=== PATIENT | female | born 1970 | race Two or more races ===

== ENCOUNTER 2025-06-11 19:41 | Emergency (ER) | payer OTHER ==
[~2025-06-11] VITALS: Ht 154.9 cm; Wt 87.0 kg
--- NOTE | 2025-06-11 21:18 | DVH ---
INDICATION: Low back pain TECHNIQUE: 4 views of the lumbar spine were obtained. COMPARISON: None FINDINGS: There are no acute fractures or subluxations. Minimal convex left curvature of the thoracolumbar spine. Alignment otherwise maintained. 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 IMPRESSION: No acute fracture or subluxation. Mild degenerative changes.
--- NOTE | 2025-06-11 21:37 | ED.PDOC ---
History of Present Illness HPI Comments 54 y/o F presents with c/c of right, lower back pain. Patient endorses on sudden onset of 'pinching' pain, while working, earlier, today, an hour prior to arrival. She reports on pain worsening whenever standing or walking. No recent injuries stated. Denies any radiating pain, weakness, numbness, tingling, or further acute symptoms. Chief Complaint: Back Pain Time Seen by MD: 20:40 Reviewed Notes: Nurses Notes, Medications, Allergies Allergies: Coded Allergies: NO KNOWN ALLERGIES (Unverified , 06/11/25) Home Meds Active Scripts Cyclobenzaprine Hcl (CYCLOBENZAPRINE HCL) 7.5 Mg Tab, 7.5 MG PO Q6HP PRN, #30 TAB Prov:CONNER LEMOS MD 06/11/25 Gabapentin (Once-Daily) (Gabapentin) 300 Mg Tab, 300 MG PO Q6HP PRN, #60 TAB Prov:CONNER LEMOS MD 06/11/25 Information Source: Patient Mode of Arrival: Ambulatory Severity: Moderate Timing: Hours Duration: Since onset Prehospital treatment: None Past Medical History PAST MEDICAL HISTORY: Denies Surgical History: Denies all surgeries 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 Family History Family History: Unknown Social History Smoker: Non-Smoker Alcohol: Denies ETOH Use Drugs: Denies Drug Use Lives In: Home All Other Systems: Reviewed and Negative (As per HPI) Physical Exam General Appearance: Mild Distress, Obese HEENT: Normal ENT Inspection, Pharynx Normal, TMs Normal Neck: Full Range of Motion, Non-Tender, Normal, Normal Inspection Respiratory: Chest Non-Tender, Lungs Clear, No Accessory Muscle Use, No Respiratory Distress, Normal Breath Sounds Cardiovascular: No Edema, No JVD, No Murmur, No Gallop, Normal Peripheral Pulses, Regular Rate/Rhythm Breast Exam: Deferred Gastrointestinal: No Organomegaly, Non Tender, No Pulsatile Mass, Normal Bowel Sounds, Soft Genitalia: Deferred Pelvic: Deferred Rectal: Deferred Extremities: No calf tenderness, Normal capillary refill, Normal inspection, Normal range of motion, Non-tender, No pedal edema Musculoskeletal : Location: Right Extremity Location: Back (lumbar paraspinal muscles ) Apperance: Normal, Tenderness Neurologic: Alert, safety teacher II-XII nml as Tested, No Motor Deficits, Normal Affect, Normal Mood, No Sensory Deficits Cerebellar Function: Normal Reflexes: Normal Skin: Dry, Normal Color, Warm Lymphatic: No Adenopathy Was a procedure done? Was a procedure done?: No Differential Dx Considerations may include: degenerative disc disease, fracture, sprain, sciatica, among others X-Ray, Labs, Meds, VS Vital Signs Date Time Temp Pulse Resp B/P (MAP) Pulse Ox O2 Delivery O2 Flow Rate FiO2 06/11/25 22:30 98.0 78 18 144/82 (102) 99 98.0 06/11/25 22:30 Room Air* 0 21 06/11/25 19:41 98.2 83 20 173/87 98 98.2 Lab Test 06/11/25 21:15 Range/Units Urine Color Yellow Yellow Urine Clarity Clear Clear Urine pH 6.0 5.0-9.0 Urine Specific [place] 1.032 1.001-1.035 Urine Protein Negative Negative Urine Ketones Trace Negative Urine Blood Negative Negative /uL Urine Nitrite Negative Negative Urine Bilirubin Negative Negative Urine Urobilinogen Normal Negative mg/dL Urine Leukocyte Esterase Trace Negative /uL Urine RBC 4 0 - 4 /hpf Urine Microscopic WBC 9 H 0-5 /HPF Urine Squamous Epithelial Cells Mod <5 /hpf Urine Bacteria None seen None Seen /hpf Urine Mucus Few None Seen Urine Glucose Normal Normal mg/dL Current Medications Medications (Trade) Dose Ordered Sig/Win Route Start Time Stop Time Status Last Admin Acetaminophen/ Hydrocodone Bitart ([place] 10/325MG Tab) 1 tab ONCE ONCE PO 06/11/25 21:00 06/11/25 21:01 DC 06/11/25 21:44 Cyclobenzaprine HCl (Flexeril Tablet) 10 mg ONCE ONCE PO 06/11/25 21:00 06/11/25 21:01 DC 06/11/25 21:44 [place] [id number] Ph: [phone] DIAGNOSTIC IMAGING Diagnostic Imaging Report : [id number] Signed PATIENT: ADEN MARTÍNEZ ACCT: [id number] UNIT: [id number] : 1970 LOC: ER ROOM / BED: / AGE / SEX: 54 / F ADM STATUS: REG ER SERVICE 45 ORDERING PHYSICIAN: CONNER LEMOS MD PROCEDURE(s): LUMB2 - LUMBAR SPINE 3 VIEW REASON: Low back pain ORDER NUMBER(s): [id number], ACCESSION NUMBER(s): [id number] INDICATION: Low back pain TECHNIQUE: 4 views of the lumbar spine were obtained. COMPARISON: None FINDINGS: There are no acute fractures or subluxations. Minimal convex left curvature of the thoracolumbar spine. Alignment otherwise maintained. 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 IMPRESSION: No acute fracture or subluxation. Mild degenerative changes. ATED BY: DUANE ASIF MD DICTATED DATE/TIME: 06/11/252115 SIGNED BY: DUANE ASIF MD SIGNED DATE/TIME: 06/11/252115 CC: Time of 1ST Reevaluation: 21:20 Reevaluation 1ST: Unchanged Patient Education/Counseling: Diagnosis, Treatment, Need For Follow Up Family Education/Counseling: No Family Present SEPSIS Sepsis Screen Date sepsis recognized/suspect: Jun 11, 2025 Time Sepsis recognized/suspect: 1940 Recent Procedure: No On Antibiotic Therapy: No Respiratory Rate >20: No Heart Rate >90: No Temp<36 C (96.8 F) or >38.3 C: No SBP <90 or MAP <65 mmHG: No New Acute Mental Status Change: No Is the patient on CPAP, BIPAP,: No Physician Orders Lumbar Spine 3 View (06/11/25 20:46) Vital Signs Date Time Temp Pulse Resp B/P (MAP) Pulse Ox O2 Delivery O2 Flow Rate FiO2 06/11/25 22:30 98.0 78 18 144/82 (102) 99 98.0 06/11/25 22:30 Room Air* 0 21 06/11/25 19:41 98.2 83 20 173/87 98 98.2 Medications Medications Dose Ordered Sig/Win Route Start Time Stop Time Status Last Admin Dose Admin Acetaminophen/ Hydrocodone Bitart 1 tab ONCE ONCE PO 06/11/25 21:00 06/11/25 21:01 DC 06/11/25 21:44 Cyclobenzaprine HCl 10 mg ONCE ONCE PO 06/11/25 21:00 06/11/25 21:01 DC 06/11/25 21:44 Departure 1 Departure Time of Disposition: 23:00 Impression: Primary Impression: Lumbar strain Disposition: HOME / SELF CARE / HOMELESS Condition: Stable e-Prescriptions Cyclobenzaprine Hcl (CYCLOBENZAPRINE HCL) 7.5 Mg Tab 7.5 MG PO Q6HP PRN, #30 TAB Prov: CONNER LEMOS MD 06/11/25 Gabapentin (Once-Daily) (Gabapentin) 300 Mg Tab 300 MG PO Q6HP PRN, #60 TAB Prov: CONNER LEMOS MD 06/11/25 Discharged With: Self Critical Care Note Critical Care Time?: No Stability Stability form required: No Heart Score Heart Score: Heart Score Response (Comments) Value History N/A 0 EKG N/A 0 Age N/A 0 Risk Factors N/A 0 Troponin N/A 0 Total 0 I personally scribed for CONNER LEMOS MD ([email or web address]) on 06/11/25 at 21:37. Electronically submitted by Miguel Narvaez ([email or web address]). CONNER LEMOS MD Jun 11, 2025 21:37
[2025-06-11] MEDS: CYCLOBENZAPRINE HCL 10 MG TAB PO ONE (21:44)
[2025-06-11] MEDS: HYDROcodone-ACET 10/325MG TAB PO ONE (21:44)
[2025-06-11 21:57] LABS: Urine Protein, UAD Negative (Negative)
[2025-06-11] MEDS ORDERED: CYCL-838 PO (22:16)
[2025-06-11] MEDS ORDERED: GABA300T4 PO (22:16)
[2025-06-11 22:30] VITALS: BP 144/82; PULSE 78; RESP 18; TEMP 98; O2SAT 99
== END 2025-06-11 22:40 | disposition home or self-care (01) ==
LOC: ER 19:41 → EEVIPCON 19:41 → ER 22:40
DX: S39.012A Strain of muscle, fascia and tendon of lower back, initial encounter (principal); X58.XXXA Exposure to other specified factors, initial encounter; Y93.89 Activity, other specified; Y92.89 Other specified places as the place of occurrence of the external cause; Y99.8 Other external cause status
CPT/HCPCS: 72100; 81001